=== PATIENT | female | born 1990 | race Caucasian/White ===

== ENCOUNTER 2021-01-07 12:18 | Emergency (ER) | payer BC, OTHER ==
[~2021-01-07] VITALS: Ht 172.7 cm; Wt 100.0 kg
[2021-01-07] MEDS ORDERED: NAPR-514 PO (12:58)
[2021-01-07] MEDS ORDERED: CYCL10TA2 PO (12:58)
[2021-01-07] MEDS ORDERED: METH4TAB2 PO (12:58)
--- NOTE | 2021-01-07 12:58 | PHYS DOC ---
Past Medical History Past Medical History: Other Additional Past Medical Histor: CHRONIC BACK PAIN Past Surgical History: Other Additional Past Surgical Histo: R KNEE Smoking Status: Never Smoker Alcohol Use: Rarely General Adult EDM: Chief Complaint: BACK PAIN - NO INJURY HPI: HPI: Patient is a 30 year old female who presents to the ED today complaining of mild intermittent low back pain with spasms, symptoms began an hour ago. Patient denies any known injury. States she has a history of low back pain with spasms. Denies any pain radiating to bilateral lower extremities. Denies any loss of bowel/bladder function. Denies any numbness or tingling to bilateral lower extremities. Review of Systems: Review of Systems: Constitutional: Denies fever or chills. [] GI: Denies abdominal pain, nausea, vomiting, bloody stools or diarrhea. [] : Denies dysuria. [] Musculoskeletal: Reports low back pain Integument: Denies rash. [] Neurologic: Denies headache, focal weakness or sensory changes. [] ] Psychiatric: Denies depression or anxiety. [] Heart Score: C/O Chest Pain: N/A Risk Factors: Risk Factors: DM, Current or recent (<one month) smoker, HTN, HLP, family history of CAD, obesity. Risk Scores: Score 0 - 3: 2.5% MACE over next 6 weeks - Discharge Home Score 4 - 6: 20.3% MACE over next 6 weeks - Admit for Clinical Observation Score 7 - 10: 72.7% MACE over next 6 weeks - Early Invasive Strategies Current Medications: Current Medications Medications (Trade) Dose Ordered Sig/[facility] Start Time Stop Time Status Last Admin Dose Admin Diazepam (Valium) 5 mg 1X ONCE 01/07/21 13:00 01/07/21 13:01 Ketorolac Tromethamine (Toradol Im) 60 mg 1X ONCE 01/07/21 13:00 01/07/21 13:01 Allergies: Allergies: Allergies Coded Allergies Type Severity Reaction Last Updated Verified Penicillins Allergy Unknown UNKNOWN 01/07/21 Yes cefaclor Allergy Unknown UNKNOWN 01/07/21 Yes Uncoded Allergies Type Severity Reaction Last Updated Verified TREXAMET Allergy Unknown UNKNOWN 01/07/21 Physical Exam: PE: Constitutional: Well developed, well nourished, no acute distress, non-toxic appearance. [] Abdomen: Bowel sounds normal, soft, no tenderness, no masses, no pulsatile masses. [] Skin: Warm, dry, no erythema, no rash. [] Back: Paraspinal muscle tenderness bilateral lumbar spine, no midline lumbar spine tenderness, no CVA tenderness. [] Extremities: No tenderness, no cyanosis, no clubbing, ROM intact, no edema. [] Neurologic: Alert and oriented X 3, normal motor function, normal sensory function, no focal deficits noted. [] Psychologic: Affect normal, judgement normal, mood normal. [] Current Patient Data: Vital Signs: Vital Signs Date Time Temp Pulse Resp B/P (MAP) Pulse Ox O2 Delivery O2 Flow Rate FiO2 01/07/21 12:18 97.7 70 20 121/85 (97) 99 Room Air 97.7 EKG: EKG: [] Radiology/Procedures: Radiology/Procedures: [] Course & Med Decision Making: Course & Med Decision Making Pertinent Labs and Imaging studies reviewed. (See chart for details) This is a 30-year-old female patient presenting to the ED today with back pain with spasms, no known injury. This is a chronic issue. Was given Toradol and Valium. Discharge to home. Has no cauda equina syndrome symptoms. Teburu Disclaimer: Teburu Disclaimer: This electronic medical record was generated, in whole or in part, using a voice recognition dictation system. Departure Departure Impression: Primary Impression: Low back pain Qualified Codes: M54.5 - Low back pain; G89.29 - Other chronic pain Additional Impression: Lumbar paraspinal muscle spasm Disposition: HOME / SELF CARE / HOMELESS Condition: STABLE Patient Instructions: Back Exercises, Generic, SportsMed, Back Pain, Adult Additional Instructions: You were evaluated in the emergency room for back pain with spasms. Please follow-up with your primary care doctor in 1 week. Apply a heating pad to your back. Take the prescribed medications as ordered. Follow-up with your doctor in 1 week Scripts Methylprednisolone (MEDROL) 4 Mg Tab.ds.pk 1 PKG PO UD, #1 PKG Prov: DEBORA NAVARRO [employer] 01/07/21 Cyclobenzaprine Hcl (CYCLOBENZAPRINE HCL) 10 Mg Tablet 1 TAB PO TID, #30 TAB Prov: DEBORA NAVARRO [employer] 01/07/21 Naproxen (NAPROXEN) 500 Mg Tablet 1 TAB PO BID for pain for 30 Days, #60 TAB 0 Refills Prov: DEBORA NAVARRO APRN 01/07/21 DEBORA NAVARRO APRN Jan 07, 2021 12:58
[2021-01-07] MEDS ORDERED: KETOROLAC 60 MG/2 ML VIAL. IM ONE (13:00)
[2021-01-07] MEDS ORDERED: diazePAM 5 MG TABLET PO ONE (13:00)
[2021-01-07 13:26] VITALS: BP 146/87
== END 2021-01-07 13:40 | disposition home or self-care (01) ==
LOC: ER 12:18
DX: M54.5 Low back pain (principal); G89.29 Other chronic pain; M62.830 Muscle spasm of back; Z88.0 Allergy status to penicillin; Z88.1 Allergy status to other antibiotic agents
CPT/HCPCS: 96372; 99283; J1885